=== PATIENT | male | born 1985 | race Caucasian/White ===

== ENCOUNTER → 2020-08-28 | Outpatient (CLI) | payer OTHER, SELFPAY ==
[2020-07-30 08:28] VITALS: BMI 22.0
== END | disposition home or self-care (01) ==
LOC: LABSPEC 13:20
PROVIDERS: Referring Provider Otolaryngology; Visit Provider Otolaryngology
DX: T78.40XA Allergy, unspecified, initial encounter (principal)
CPT/HCPCS: 86003

== ENCOUNTER → 2021-01-24 07:15 | Outpatient (CLI) | payer OTHER, SELFPAY ==
[2020-07-30 08:28] VITALS: BMI 22.0
--- NOTE | 2021-01-24 07:34 | MRI_ITS ---
STUDY: MRI LEFT ANKLE WITHOUT CONTRAST REASON FOR EXAM: Male, 35 years old. INSTABILITY, SUSPECT TEAR ATFL TECHNIQUE: Standardized fat and water weighted pulse sequences were obtained in all 3 orthogonal planes. COMPARISON: None. FINDINGS: Normal subcutis adipose space. There is tenosynovitis of the posterior tibialis tendon sheath with an intrinsic normal tendon. There is tenosynovitis of the flexor digitorum longus tendon sheath, without a tendinosis or tendon tear. There is tenosynovitis of the flexor hallucis longus tendon sheath, with an intrinsically normal tendon. There is a tenosynovitis of the peroneal tendons without a demonstrated tendon tear. Normal tibialis anterior tendon. Normal extensor hallucis longus tendon. Normal extensor digitorum longus tendons. Normal Achilles tendon and teno-osseous insertion. Normal plantar fascia. Normal plantar calcaneal tubercles. Normal intrinsic muscles of the rearfoot. Normal distal tibiofibular syndesmotic ligamentous complex. There is a complete rupture of the anterior talofibular ligament (ATFL). Normal subtalar ligaments and sinus tarsi. Normal deltoid ligamentous complexes. Normal plantar calcaneonavicular (spring) ligament. There is a joint effusion of the tibiotalar articulation with capsular distension. Tiny (2 mm) grade 1 osteochondral lesion of the medial shoulder of the talar dome with surrounding marrow edema. Normal subtalar articulations. Normal talonavicular articulation. Normal calcaneocuboid articulation. Normal navicular-cuneiform articulations. MRI/Lower Ext Joint Only (Routine) IMPRESSION: 1. Tear of the anterior talofibular ligament with a tiny grade 1 osteochondral lesion of the medial shoulder of the talar dome with surrounding edema and joint effusion. 2. Mild tenosynovitis of the flexor and peroneal tendons. Electronically Signed: Simon Kim MD at 8:37 EDT Tel , Service support ,
== END ==
PROVIDERS: PCP Family Medicine; Referring Provider Podiatrist Foot & Ankle Surgery; Visit Provider Podiatrist Foot & Ankle Surgery
DX: M25.572 Pain in left ankle and joints of left foot (principal); G89.29 Other chronic pain
CPT/HCPCS: 73721

== ENCOUNTER → 2021-02-24 11:45 | Outpatient (CLI) | payer OTHER, SELFPAY ==
[2020-07-30 08:28] VITALS: BMI 22.0
== END ==
PROVIDERS: PCP Family Medicine
DX: Z01.818 Encounter for other preprocedural examination (principal); M25.372 Other instability, left ankle
CPT/HCPCS: 87635; C9803; U0005; U0003

== ENCOUNTER 2021-05-06 15:00 | Outpatient (RCR) | payer OTHER, SELFPAY ==
--- NOTE | 2021-04-29 07:55 | HP.PTEVAL_ITS ---
Patient's Visit Information DIONNE TOBIN is a 36 year old M referred to Physical Therapy by MICHAEL ADAMS with a diagnosis of S/P L ankle surgery. Date of Evaluation: 04/29/21 Physical Therapist: Seferino Pacheco, PT, ATC - Visit Plan Frequency: 2x /Week Duration: 1 Week Plan: Issue and instruct pt on HEP of L ankle strengthening, stretching, and balance activities - Subjective DOS: 03/02/21. Pt reports he had a chronic Hx of L ankle sprains prior to having this surgery performed. Pt notes he had an avulsion fracture which was repaired along with multiple ligament repairs. Pt reports he has no pain today, but notes he is still swollen and a bit limited. Pt reports no tingling or numbness in L LE at this time. No sleep difficulty secondary to pain. No prior Hx of L ankle surgeries prior to this episode. Pt notes he did fracture his L ankle when he was younger. Pt is glad he had the surgery at this time. Pt notes prior to surgery he sparined his ankle on multiple occassions. Pt notes he usually only had pain for a day or two, but states sometimes his pain would be severe. Pt notes walking on even ground at times would result in a sprained ankle. Pt reports 0/10 pain this date. Pt reports he would like to come to PT for a couple appointments to get a solid HEP for ankle strengthening. - Pain L ankle Pain Intensity (Out of 10): 0 - Objective Neuro: B LE sensation is WNL to light touch. B achilles reflex= 2/3. Girth: B ankles 52 cm. ROM: R ankle DF= 4, PF= 45; L ankle DF= 0, PF= 35. MMT: R ankle is 5/5 throughout. L ankle is 4+/5. Gait: No sig deviations this date - Balance/Special Test Scores Lower Extremity Functional Score: 70 - Goals Goal 1:: I with HEP after 1-2 visits Goal Time Frame: 1 Week - Rehabilitation Potential Physical Therapy Diagnosis: Pt reports he has ankle instability at this time secondary to being s/p L ankle surgery Rehabilitation Potential: Good - Anticipated Interventions Patient/Client Instruction: Educate patient on: Condition, Plan of Care For the Purpose of:: To improve self management Therapeutic Exercise to Include: Strength training, Endurance training, Balance training, Flexibilty training, Active ROM For the Purpose of:: To increase ROM, To improve muscle performance and motor function Thank you for the opportunity to evaluate your patient. For Medicare and Medicare HMO plans, please review the plan of care and approve it. It will need to be FAXED BACK to us at [phone] for Medicare purposes. For Medicare only, by signing this I certify the plan of care. Please let me know if there are questions or concerns regarding this plan of care. Physician Signature:_ Date:
== END 2021-05-06 19:00 | disposition home or self-care (01) ==
LOC: PT 15:00
PROVIDERS: PCP Family Medicine
DX: M25.372 Other instability, left ankle (principal)
CPT/HCPCS: 97110; 97161

== ENCOUNTER 2021-05-20 06:45 | Day surgery (SDC) | payer OTHER, SELFPAY ==
[2021-05-20] VITALS (7 sets, daily range): BP systolic 101–124; BP diastolic 76–84; PULSE 70–86; RESP 16; TEMP 35.9–36.9; O2SAT 94–100; BMI 22.2
[2021-05-20] MEDS: Lactated Ringers 1,000 ML 15 ML IV (07:05)
--- NOTE | 2021-05-20 07:45 | EGD_PTH ---
PATIENT: DIONNE TOBIN LOC: EN U#:[id number] AGE/SX: 36/M ROOM: RE05/20/[address]: Dr. Farhad Nichols DO : 1985 BED: DIS: 05/20/2021 SPEC #: [id number] RECD: 05/20/21 12:06 STATUS: RADHA TENISHA #: [id number] DINESH: 05/20/21 07:[address]: Farhad Nichols DEPT: SURGICAL PATHOLOGY RECD BY: Danelle Gonzalez ENTERED: 05/20/21 13:40 SP TYPE: EGD BIOPSY DONAL DR: Dr. Shirley Ferrer MD Tissues: Esophagus, NOS Procedures: Surgery Specimen Level IV HEADER OPERATION: EGD ([facility] [place] PRE-OP DIAGNOSIS: Eosinophilic esophagitis TISSUE SUBMITTED: Random esophagus biopsy MICROSCOPIC DIAGNOSIS Esophagus, random biopsy: Eosinophilic esophagitis. AM:nahid 05/21/2021 COMMENT Case has been reviewed in consultation with Dr. Parkinson who concurs with the above diagnosis. IDC:SJ MICROSCOPIC DESCRIPTION Slides are reviewed. GROSS DESCRIPTION Received in fixative is one container labeled with the patient's name and designated random esophagus biopsy. The specimen consists of multiple irregular fragments of light fry soft tissue that in aggregate measure 1 x 0.3 x 0.1 cm. The specimen is totally submitted in one cassette. / JUANA:nahid 05/20/21 TC:3 CPT: 45627
--- NOTE | 2021-05-20 07:49 | PCM.HP.BLA ---
History and Physical Date of Admission: 05/20/21 HPI HPI Chief Complaint: COVID-19 screening requested Details: DIONNE TOBIN, is a 36 M who presents to the office today for further evaluation of esophageal dysphagia. He was given a previous diagnosis of eosinophilic esophagitis. He has not identified any food allergies. He has not been on budesonide. He is not have any esophageal dysphagia at this time. But he is getting a lot of heartburn. Has been seeing GI in [place] for the last ten to fifteen years. He has difficulty swallowing and determined that he has food that sits atop his LES which causes pain and mouth sweats and this has been going on for the last six months. EGD done and found a ring of scarring with was dilated at that time. Biopsies were negative for abnormalities started on prilosec OTC. Several years later he had the same issues EGD performed and biopsies showed eosinophilic esophagitis. Was prescribed a inhalation that was meant to be taken for thirty days when he was having issues. However the last time he had an issue it did not help. Has a lot of difficulty with environmental allergies which her receives allergy injections weekly for. In the last two years he has had an EGD with dilation and this did not help at all. ROS ENT ENT: Positive for difficulty swallowing Gastro GI: Positive for heartburn and difficulty swallowing Exam Const General: cooperative and comfortable Nutritional Appearance: average body habitus and well nourished HENDC Head: normal to inspection Ears: hearing grossly normal bilaterally Nose: external nose normal Face and sinus: normal facial exam Mouth: oral mucosae normal Throat: posterior oropharynx normal Eyes General: appearance normal, both eyes and all related structures Neck Neck: normal visual inspection Chest Chest palpation & inspection: normal inspection of the chest and normal palpation of entire chest wall Resp Effort & Inspection: normal respiratory effort Auscultation: Bilateral: Clear to Auscultation Cardio Palpation: normal PMI Rate: regular rate Rhythm: regular rhythm GI Inspection: normal to inspection Auscultation: normal bowel sounds Percussion: normal to percussion Palpation: no hepatosplenomegaly Skin General: no rashes or lesions noted Neuro General: patient alert Extrem General: normal to inspection Psych Affect: normal affect Quality Reporting Tobacco Screening ([facility] 138) Smoking Status: Never smoker Assessment and Plan Assessment and Plan (1) Eosinophilic esophagitis: Status: Acute Plan - Dr. Farhad Friend, DO: We will perform an upper endoscopy to evaluate his upper esophagus. We will form biopsies. He may be a candidate for esophageal dilation because he is having esophageal dysphagia. He also may be a candidate for esophageal manometry. To see if he has any underlying other esophageal motility disorders. Further recommendation to follow after endoscopy. This is an updated H&P from the patient was seen in office. Nothing is changed since he was seen in office.
--- NOTE | 2021-05-20 08:26 | OP.CCLET_ITS ---
03/19/2022 Shirley Ferrer [address] [place] [address] Re : Upper GI endoscopy procedure for Esvin Díaz Dear Dr. Ferrer This procedure was performed on Thursday, May 20, 2021. My impressions and recommendations are as follows: Impressions : - Esophageal mucosal changes secondary to eosinophilic esophagitis. Biopsied. Dilated. - Normal stomach. - No gross lesions in the duodenal bulb. Recommendations : - Discharge patient to home. - Full liquid diet. - Use Protonix (pantoprazole) 40 mg PO BID for 8 weeks. - Continue present medications. My findings are described in the full procedure note, which is enclosed. If I can be of further assistance, please feel free to contact me at . Sincerely, Farhad Nichols, 05/20/2021 8:25:13 AM This report has been signed electronically.
--- NOTE | 2021-05-20 08:26 | OP.EGD_ITS ---
Patient Name: Esvin Díaz Procedure Date: 05/20/2021 7:59 AM Date of : 1985 Age: 36 Procedure: Upper GI endoscopy Indications: Dysphagia Providers: Farhad Nichols DO Referring MD: Shirley Ferrer Medicines: See the Anesthesia note for documentation of the administered medications Patient Profile: This is a 36 year old male. Refer to note in patient chart for documentation of history and physical. Patient has symptoms. He is status post EGD for biopsy within the past three years. Complications: No immediate complications. Procedure: Pre-Anesthesia Assessment: - Prior to the procedure, a History and Physical was performed, and patient medications and allergies were reviewed. The risks and benefits of the procedure and the sedation options and risks were discussed with the patient. All questions were answered and informed consent was obtained. Patient identification and proposed procedure were verified by the physician in the pre-procedure area. Mental Status Examination: alert and oriented. Airway Examination: normal oropharyngeal airway and neck mobility. Respiratory Examination: clear to auscultation. CV Examination: normal. Prophylactic Antibiotics: The patient does not require prophylactic antibiotics. Prior Anticoagulants: The patient has taken no previous anticoagulant or antiplatelet agents. ASA Grade Assessment: II - A patient with mild systemic disease. After reviewing the risks and benefits, the patient was deemed in satisfactory condition to undergo the procedure. The anesthesia plan was to use moderate sedation / analgesia (conscious sedation). Immediately prior to administration of medications, the patient was re-assessed for adequacy to receive sedatives. The heart rate, respiratory rate, oxygen saturations, blood pressure, adequacy of pulmonary ventilation, and response to care were monitored throughout the procedure. The physical status of the patient was re-assessed after the procedure. After obtaining informed consent, the endoscope was passed under direct vision. Throughout the procedure, the patient's blood pressure, pulse, and oxygen saturations were monitored continuously. The gastroscope was introduced through the mouth, and advanced to the second part of duodenum. The upper GI endoscopy was accomplished without difficulty. The patient tolerated the procedure well. Moderate Sedation: Moderate (conscious) sedation was personally administered by an anesthesia professional. The following parameters were monitored: oxygen saturation, heart rate, blood pressure, and response to care. Total physician intraservice time was 2 minutes. Scope In: 8:05:47 AM Scope Out: 8:11:44 AM Total Procedure Duration Time 0 hours 5 minutes 57 seconds Findings: Mucosal changes including ringed esophagus, feline appearance, longitudinal furrows, small-caliber esophagus and white plaques were found in the entire esophagus. Esophageal findings were graded using the Eosinophilic Esophagitis Endoscopic Reference Score (EoE-EREFS) as: Rings Grade 2 Moderate (distinct rings that do not occlude passage of diagnostic 8-10 mm endoscope), Exudates Grade 1 Mild (scattered white lesions involving less than 10 percent of the esophageal surface area), Furrows Grade 1 Present (vertical lines with or without visible depth) and Stricture present (5 mm luminal diameter). Biopsies were taken with a cold forceps for histology. Verification of patient identification for the specimen was done. Estimated blood loss was minimal. A guidewire was placed and the scope was withdrawn. Dilation was performed with a Savary dilator with no resistance at 54 Fr. The entire examined stomach was normal. No gross lesions were noted in the duodenal bulb. Impression: - Esophageal mucosal changes secondary to eosinophilic esophagitis. Biopsied. Dilated. - Normal stomach. - No gross lesions in the duodenal bulb. Recommendation: - Discharge patient to home. - Full liquid diet. - Use Protonix (pantoprazole) 40 mg PO BID for 8 weeks. - Continue present medications. Procedure Code(s): --- Professional --- 88143, Esophagogastroduodenoscopy, flexible, transoral; with insertion of guide wire followed by passage of dilator(s) through esophagus over guide wire 95911, 59, Esophagogastroduodenoscopy, flexible, transoral; with biopsy, single or multiple CPT copyright 2017 [employer]. All rights reserved. The codes documented in this report are preliminary and upon chemical treatment plant technician review may be revised to meet current compliance requirements. Farhad Nichols DO 05/20/2021 8:25:13 AM This report has been signed electronically. Number of Addenda: 1 Note Initiated On: 05/20/2021 7:59 AM Addendum Number: 1 Addendum Date: 03/19/2022 6:08:52 AM MAC was used instead of moderate sedation for this patient. Farhad Nichols DO 03/19/2022 6:08:58 AM This report has been signed electronically.
== END 2021-05-20 09:10 | disposition home or self-care (01) ==
LOC: EN 06:46 → AC 06:46
PROVIDERS: PCP Family Medicine; Referring Provider Family Medicine; Visit Provider Internal Medicine Gastroenterology
PROC: 0DJ08ZZ Inspection of Upper Intestinal Tract, Via Natural or Artificial Opening Endoscopic (ICD-10-PCS; CPT 43235; principal; 2021-05-20 07:40)
DX: K20.0 Eosinophilic esophagitis (principal); K22.2 Esophageal obstruction; K21.9 Gastro-esophageal reflux disease without esophagitis; J45.909 Unspecified asthma, uncomplicated; Z86.16 Personal history of COVID-19
CPT/HCPCS: 43239; 43248; 87426; 88305; C9803; J7120; C1769; J2405

== ENCOUNTER → 2022-06-23 | Outpatient (CLI) | payer OTHER, SELFPAY ==
[2022-06-29 15:07] LABS: Aldosterone, Serum < 1.0 ng/dL (0.0-30.0); Dopamine, Pl <30 pg/mL (0-48); Epinephrine, Pl 36 pg/mL (0-62); Norepinephrine, Pl 354 pg/mL (0-874)
[2022-07-01 10:22] LABS: ALDOSTERONE/RENIN RATIO <.1 (0.0-30.0)
== END | disposition home or self-care (01) ==
LOC: LAB 16:23
PROVIDERS: PCP Family Medicine; Visit Provider Internal Medicine Cardiovascular Disease
DX: I10 Essential (primary) hypertension (principal)
CPT/HCPCS: 36415; 82088; 82384; 84244

== ENCOUNTER → 2022-07-01 | Outpatient (CLI) | payer OTHER, SELFPAY ==
--- NOTE | 2022-07-01 07:53 | ECHOD_ITS ---
Reason For Study: HYPERTENSION Procedure This was a 2D Doppler, Color Flow transthoracic echocardiogram. Exam performed in department. Left Ventricle Normal LV size. Left ventricular systolic function is normal. The estimated ejection fraction is 60 %. No regional wall motion abnormalities noted. Right Ventricle Normal RV size. Normal systolic function. Atria Normal left atrium. Normal right atrium. Bubble contrast study negative for right to left interatrial shunt. Mitral Valve Normal mitral valve. Tricuspid Valve Normal tricuspid valve. Aortic Valve Normal aortic valve. Trisinus/trileaflet aortic valve. Pulmonic Valve Normal pulmonic valve. Great Vessels Normal aortic root. The pulmonary artery is normal size. Normal inferior vena cava. Pericardium/Pleural No pericardial effusion. Medication 22 gauge I.V. with prn adaptor inserted into right arm. Performed a rapid injection of agitated mix of 9 cc saline and 1cc air to assess for atrial septal defect. MMode/2D Measurements & Calculations LVIDd: 5.4 cm IVSd: 0.70 cm Ao root diam: 3.0 cm LVIDs: 3.5 cm LVPWd: 0.63 cm RVDd: 3.7 cm FS: 35.5 % LAV(MOD-bp): 28.1 ml LVAd ap4: 35.0 cm2 SV(MOD-sp4): 73.3 ml LAV(MOD-bp) Indexed: 13.4 ml/m2 LVLd ap4: 8.5 cm LAV(MOD-sp2): 27.4 ml EDV(MOD-sp4): 117.4 ml LAV(MOD-sp4): 29.7 ml EDV(sp4-el): 122.1 ml LVAs ap4: 19.8 cm2 LVLs ap4: 7.5 cm ESV(MOD-sp4): 44.2 ml ESV(sp4-el): 44.7 ml EF(MOD-sp4): 62.4 % EF(sp4-el): 63.4 % SV(sp4-el): 77.4 ml LA A4 area: 13.3 cm2 LA dimension(2D): 2.8 cm RA A4 area: 11.5 cm2 Time Measurements MV dec time: 0.17 sec Doppler Measurements & Calculations MV E max milad: 61.9 cm/sec Lat Peak E' Milad: 14.6 cm/sec Med Peak E' Milad: 14.5 cm/sec MV A max milad: 49.7 cm/sec E/E' lat: 4.2 E/E' med: 4.3 MV E/A: 1.2 Ao V2 max: 106.4 cm/sec LV V1 max: 86.9 cm/sec PA V2 max: 111.6 cm/sec Ao max P.5 mmHg LV V1 max P.0 mmHg ECHO/Echo Complete Interpretation Summary Normal LV size. Left ventricular systolic function is normal. The estimated ejection fraction is 60 %. Bubble contrast study negative for right to left interatrial shunt. Ordering Physician: Roge Orantes Referring Physician: MINA URBINA Performed By: Aminata Rod RDCS
== END | disposition home or self-care (01) ==
LOC: CVS 07:53
PROVIDERS: PCP Family Medicine; Visit Provider Internal Medicine Cardiovascular Disease
DX: I10 Essential (primary) hypertension (principal)
CPT/HCPCS: 93306; A4216

== ENCOUNTER → 2022-07-09 | Outpatient (CLI) | payer OTHER, SELFPAY ==
--- NOTE | 2022-07-09 08:39 | RDU_ITS ---
Reason For Study: HTN, Elevated Renin Level Right Renal Artery Left Renal Artery Right renal artery ostium 290/82 Left renal artery ostium 134/30 RSV/EDV. PSV/EDV. Right renal artery proximal 215/80 Left renal artery proximal PSV/EDV PSV/EDV. 153/32 . Right renal artery mid 241/83 Left renal artery mid 137/36 PSV/EDV. PSV/EDV . Right renal artery distal 185/70 Left renal artery distal 110/37 PSV/EDV. PSV/EDV. Right RAR 3.22. Left RAR 1.70. Right Renal Parenchyma Left Renal Parenchyma Upper Pole Medula 50/20 PSV/EDV. Left upper pole medulla 25/10 Right upper pole medulla EDR 0.40 . PSV/EDV . Right upper pole medulla R.I. Left upper pole medulla EDR 0.40 . 0.59 . Left upper pole medulla R.I. 0.61 . Upper Milind Cortx 24/10 PSV/EDV. UP Cortex 25/11 PSV/EDV. Right upper pole cortex EDR 0.42 . Left upper pole cortex EDR 0.44 . Right upper pole cortex R.I. 0.57 . Left upper pole cortex R.I. 0.56 . Right lower Pole medulla 34/15 Left lower Pole medulla 25/11 PSV/EDV . PSV/EDV . Right lower pole medulla EDR 0.44 . Left lower pole medulla EDR 0.44 . Right lower pole medulla R.I. Left lower pole medulla R.I. 0.57 . 0.55 . Lower Pole Cortx 25/12 PSV/EDV. Lower Pole Cortex 21/8 PSV/EDV. Left lower pole cortex EDR 0.48 . Right lower pole cortex EDR 0.38 . Left lower pole cortex R.I. 0.53 . Right lower pole cortex R.I. 0.60 . Left Renal Hilar Right Renal Hilar LT Hilar avg 121/35 PSV/EDV . Right Hilar avg 102/29 PSV/EDV. Left hilar acceleration time 30 Right hilar acceleration time 50 m/sec. m/sec. Left Renal Dimensions Right Renal Dimensions Left kidney size 12.51 cm . Right kidney size 12.2 cm . Left cortical dimension 1.15 cm . Right cortical dimension 1.27 cm . Aorta Proximal abdominal aorta 1.53cm x 1.49 cm . Proximal abdominal aorta peak systolic velocity is 118 cm/sec . Distal abdominal aorta 1.55cm x 1.52 cm . Distal abdominal aorta peak systolic velocity is 90 cm/sec . VL/Renal Artery Duplex Ultrasound Interpretation Summary Right renal artery with elevated velocities but with normal renal-aortic ratio indicating no significant stenosis. Left renal artery with normal velocities and no evidence of stenosis Right renal vein patent Left renal vein patent The right kidney is normal in size. The left kidney is normal in size. Ordering Physician: Lillie Snell Referring Physician: Shirley Ferrer Performed By: Aracelis Yañez, KERVIN, RVT
== END | disposition home or self-care (01) ==
LOC: CVS 08:38
PROVIDERS: PCP Family Medicine; Referring Provider Nurse Practitioner Gerontology; Visit Provider Nurse Practitioner Gerontology
DX: I10 Essential (primary) hypertension (principal)
CPT/HCPCS: 93975

== ENCOUNTER → 2022-09-24 | Outpatient (CLI) | payer OTHER, SELFPAY ==
[2022-09-24 16:14] LABS: T3 Total - Triiodothyronine 1.04 ng/mL (0.6-1.81)
[2022-09-24 16:15] LABS: T4 Total, Thyroxin 7.2 ug/dL (4.5-12.1); Thyroid Stim Hormone (TSH) 1.18 uIU/mL (0.358-3.74)
[2022-10-03 04:06] LABS: Aldosterone, Serum 5.5 ng/dL (0.0-30.0); Dopamine, Pl <30 pg/mL (0-48); Epinephrine, Pl 16 pg/mL (0-62); Norepinephrine, Pl 322 pg/mL (0-874)
[2022-10-03 08:29] LABS: Renin, Plasma 19.639 ng/mL/hr (0.167-5.380)
== END | disposition home or self-care (01) ==
LOC: LAB 15:13
PROVIDERS: PCP Family Medicine; Referring Provider Internal Medicine Cardiovascular Disease; Visit Provider Internal Medicine Cardiovascular Disease
DX: I10 Essential (primary) hypertension (principal); Z83.49 Family history of other endocrine, nutritional and metabolic diseases; R51.9 Headache, unspecified
CPT/HCPCS: 36415; 82088; 82384; 84244; 84436; 84443; 84480

== ENCOUNTER → 2023-06-02 | Outpatient (CLI) | payer OTHER, SELFPAY ==
--- NOTE | 2023-06-02 15:34 | MRI_ITS ---
STUDY: MRI ORBITS WITH AND WITHOUT CONTRAST REASON FOR EXAM: Male, 38 years old. ORBITAL MASS RT EYE TECHNIQUE: Standardized fat and water weighted pulse sequences were obtained in all 3 orthogonal planes, pre-and post contrast administration. IV 17ml Clariscan was administered for the contrast portion of the examination. COMPARISON: None. FINDINGS: Normal bilateral globes. Normal bilateral optic nerve sheath complexes and optic nerves. Normal bilateral intraconal and extraconal spaces. Normal bilateral extraocular muscles. Normal optic chiasm and post-chiasmatic tracts. Normal sella turcica, pituitary gland, infundibular stalk, and hypothalamus. Normal bilateral cavernous sinuses. Normal tectal plate and pineal gland. Normal flow voids within the major intracranial circulation suggesting patency by spin echo criteria. Normal size of the ventricles and extra-axial spaces for the patient''s age. Normal white matter tracts of the supratentorial brain. Normal bilateral basal ganglia. Normal thalami. There is no extra-axial fluid accumulation. Normal midbrain, hebert and medulla. Normal cerebellum. Normal basal cisterns. Paranasal sinuses: Mucosal thickening and/or granulation tissue in the right maxillary sinus. 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 Normal remaining paranasal sinuses. MRI/Orbit Face Neck W/WO Contrast IMPRESSION: Normal enhanced and unenhanced MRI of the orbits and brain. COMMENT: The right orbital mass is not visible in all of the pulse sequences and all of the images. Please provide comparison study if there was definite documentation of right orbital mass. Electronically Signed: Ranjit Meyers MD at 9:57 EST ,
[2023-06-02 16:14] LABS: EGFR FINGERSTICK > 60.0000 mL/min (>60)
== END | disposition home or self-care (01) ==
LOC: MRI 15:32
PROVIDERS: PCP Family Medicine
DX: H05.89 Other disorders of orbit (principal)
CPT/HCPCS: 70543; A9575

== ENCOUNTER 2025-04-02 07:57 | Outpatient (CLI) | payer OTHER, SELFPAY | END 2025-04-02 23:59 | disposition home or self-care (01) | LOC: BIMLAB 07:58 | PROVIDERS: PCP Family Medicine; Referring Provider Family Medicine; Visit Provider Family Medicine | DX: R53.83 Other fatigue (principal); Z83.49 Family history of other endocrine, nutritional and metabolic diseases | CPT/HCPCS: 36415; 84403 ==